=== PATIENT | male | born 1985 | race Caucasian/White ===

== ENCOUNTER 2016-05-02 14:07 | Emergency (ER) | payer MEDICAID ==
[~2016-05-02] VITALS: Ht 172.7 cm; Wt 77.1 kg
[~2016-05-02 14:07] MED LIST: NOMEDS XX
--- NOTE | 2016-05-02 14:58 | Urgent Treatment Center Report ---
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 N If Yes, where/when: Have you had exposure to infectious disease within the past month? TB? Other? Specify: Source patient, RN notes reviewed Exam Limitations no limitations Comment Patient presents with right hip pain. Says he has chronic hip problems - he "doesn't have cartilage in them". Worse pain since yesterday when he was racking firewood. Has pain in his low back and bilateral groin area. Denies bowel or bladder complaints. Denies numbness or tingling down either leg. ALLERGIES Coded Allergies: No Known Allergies (04/28/16) Home Medications Reported Medications No Home Medications (NO HOME MEDICATIONS) 1 EACH XX ONCE History Medical History General CAD? No Angina: No [place]: No Hypertension? No Hyperlipidemia? No CHF? No DVT? No PE? No COPD? No Asthma? No Anemia? No GERD? No Gastric ulcers? No GI Bleed? No Hernia? No Thyroid Problems? No Hypothyroidism? No CVA? No Seizures? No Diabetes? No Insulin Dependent: No Insulin Pump: No Home FSBS? No Renal Insuffiency? No UTI? No Stones? No BPH? No GB Disease: No Nephritic Syndrome? No Asplenia? No Hepatitis? No Sickle Cell Disease? No Arthritis? No Migraines? No Cataracts? No Glaucoma? No MRSA? No HIV? No TB? No Anxiety? No Depression? No Cancer? No Immunization HX DT/Tetanus Unknown Surgical Hx Previous Surgery?Y Hernia Repair Social History Smoking Hx Smoker: Current Every Day Smoker Tobacco: Yes Type Cigarettes Packs/day < 1 Pack Alcohol Alcohol: Yes Review of Systems All Other Systems Reviewed and Negative Musculoskeletal see HPI, back pain, joint pain Physical Exam Vital Signs Vital Signs Date Time Temp Pulse Resp B/P Pulse O2 O2 Flow FiO2 Ox Delivery Rate 05/02 1521 98.6 88 18 178/78 100 05/02 1425 98.6 88 18 178/78 100 General Appearance normal appearance, no apparent distress Respiratory Status No: respiratory distress, trachea midline, chest symmetrical. Lung Sounds bilateral: normal breath sounds, lungs clear. Cardiovascular normal exam, regular rate/rhythm, no peripheral edema, no gallop, no JVD, no murmur, no rub Back normal inspection, muscle spasm, vertebral tenderness Neurologic alert, normal exam, oriented x 3 Medical Decision Making LABS/Meds/Orders Pt receiving controlled substance in ED? No Results/Orders Orders Procedure Date/time Status HIP RT 2-3V W/PELVIS IF PERFOR 05/02 1504 Active LUMBAR SPINE 5 VIEWS 05/02 1440 Active HIP LT 2-3V W/PELVIS IF PERFOR 05/02 1440 Active Departure Departure Time of Disposition 1511 Disposition DC Home or Self Care(routine) Clinical Impression Primary Impression: Hip pain Qualifiers: Laterality: bilateral Qualified Code: M25.551 - Pain in right hip Condition STABLE Referrals Leon PHILLIP,Kartik Benitez (Family): 1 Day-Call Office Patient Instructions DI for Joint Pain Discharge Counseling Counseled pt/family regarding diagnosis, test results, medications/RX Prescriptions Current Visit Scripts Naproxen (Naprosyn 500MG Tab) 500 MG PO BID #14 TAB Cyclobenzaprine Hcl (Flexeril) 10 MG PO TID #30 TAB at 4150
[2016-05-02] MEDS ORDERED: NAPROSYN500 M1 PO (15:13)
[2016-05-02] MEDS ORDERED: FLEXERIL10 MG PO (15:14)
[2016-05-02 15:21] VITALS: BP 178/78
--- NOTE | 2016-05-02 15:47 | RADIOLOGY REPORT PS360 ---
LUMBAR SPINE 5 VIEWS COMPARISON: None HISTORY: Low back pain TECHNIQUE: AP lateral and oblique views and spot view lumbosacral junction FINDINGS: There is normal curvature and alignment. There is a transitional vertebrae at the lumbosacral junction with apparent bilateral lumbarization of S1. There is spina bifida occulta of S1. There is marked thinning and possibly a true bony defect of the pars interarticularis at the S1-S2 level. There is minor narrowing of the L3-4 disc space. 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 Very minor or early degenerative disc disease L3-4.
--- NOTE | 2016-05-02 21:45 | RADIOLOGY REPORT PS360 ---
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 There are small ossifications seen just inferior to the right hip joint. There is moderate coxa vera angulation of the femoral head neck junction in both hips but more prominent right side than left. The iliac bones and pubic bones appear normal and the SI joints are normal. 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
== END 2016-05-02 15:21 | disposition home or self-care (01) ==
LOC: UTC 14:07 → ER 14:10 → UTC 14:10 → ER 15:21
DX: M25.551 Pain in right hip (principal); M25.552 Pain in left hip; Z72.0 Tobacco use

== ENCOUNTER → 2016-06-28 | Outpatient (CLI) | payer MEDICAID ==
[~2016-06-28] MED LIST changes: +FLEXERIL10 MG PO; +NAPROSYN500 M1 PO
[2016-06-28 14:58] LABS: AMPHETAMINES/METAMPHETAMINES NEGATIVE ng/mL (<1000)
== END ==
LOC: LAB 13:57
PROVIDERS: Emergency Medicine
DX: Z79.899 Other long term (current) drug therapy (principal)

== ENCOUNTER → 2016-11-26 | Outpatient (CLI) | payer MEDICAID ==
[2016-11-26 16:31] LABS: AMPHETAMINES/METAMPHETAMINES NEGATIVE ng/mL (<1000)
== END ==
LOC: LAB 15:50
PROVIDERS: Emergency Medicine
DX: Z79.899 Other long term (current) drug therapy (principal)